=== PATIENT | male | born 1980 | race Caucasian/White ===

== ENCOUNTER 2017-04-26 11:20 | Emergency (ER) | payer MEDICARE, MEDICAID ==
[2017-04-26] MEDS ORDERED: Ondansetron ODT 4 MG TAB ONE (11:31)
--- NOTE | 2017-04-26 12:07 | RAD ---
RADIOGRAPH PELVIS ONE VIEW: Date: 04-26-17 History: 37-year-old male with acute traumatic pelvic pain from fall. FINDINGS: There is no dislocation. The pelvic ring appears to be grossly intact with no evidence of grossly dis placed fracture. IMPRESSION: Negative. POS: [facility]
--- NOTE | 2017-04-26 12:22 | CT ---
CT LUMBAR SPINE NONCONTRAST: 04/26/2017 HISTORY: A 37-year-old male with acute, traumatic low back pain after a fall. COMPARISON: None. FINDINGS: There are five lumbar type vertebrae. Minimal chronic anterior wedging of T12. Otherwise, the verte bral body heights are maintained. Slight degenerative retrolisthesis of L5 on S1. Otherwise, alignm ent is normal. No spondylolysis. No acute fracture. At L5-S1, there is a left paracentral extradural mass indenting the left side of the thecal sac and p osteriorly displacing a swollen left S1 nerve root. This soft tissue density mass fills the left lat eral recess. It also enters the left neural foramen and causes moderate to severe left neural forami nal stenosis, superiorly displacing the exiting left L5 nerve root. There is mild to moderate disk s pace narrowing at L5-S1. There are mild disk bulges at L3-L4, L4-L5, and L5-S1. No hematoma in the perivertebral spaces. There is mild dilation of the left ureter. Minimal dilation of the left renal collecting system. The right renal fossa is empty, except for surgical clips and bowel loops. IMPRESSION: 1. Left paracentral and left lateral soft tissue density mass impinging on the left S1 nerve root an d probably also the left L5 nerve root. Given the history of trauma, this is evidence for an extrude d disk herniation. 2. No acute compression fracture. 3. Status post right nephrectomy. POS: [facility]
== END 2017-04-26 13:00 | disposition home or self-care (01) ==
LOC: ERS 11:20
DX: M54.5 Low back pain (principal); F17.210 Nicotine dependence, cigarettes, uncomplicated
CPT/HCPCS: 72131; 72170; 96372; J2270; Q0162

== ENCOUNTER 2017-05-24 05:50 | Day surgery (SDC) | payer MEDICARE, MEDICAID ==
[2017-05-23 11:26] VITALS: BMI 23.1
[2017-05-24 06:30] LABS: Hemoglobin 14.5 g/dL (14.0-18.0); Mean Corpuscular HGB CONC 35.2 g/dL (32.0-36.0); Mean Corpuscular Hemoglobin 32.6 pg (27.0-31.0); Mean Corpuscular Volume 92.6 fl (80.0-94.0); Mean Platelet Volume 7.6 fL (7.4-10.4); Platelet Count 223 thou/uL (130-400); RBC Distribution Width 11.3 % (11.5-14.5); Red Blood Cell (RBC) Count 4.44 mill/uL (4.70-6.10); White Blood Cell (WBC) Count 7.4 thou/uL (4.8-10.8)
[2017-05-24] MEDS ORDERED: Fentanyl 250 MCG/5 ML VIAL ONE ×2 (06:39→09:26)
[2017-05-24 06:40] LABS: INR-International Normal Ratio 1.1; Prothrombin Time 14.2 SEC (12.0-14.7)
[2017-05-24 06:41] LABS: PTT 31.6 SEC (22.9-36.1)
[2017-05-24] MEDS ORDERED: Bupivacaine HCl 0.5%/Epinephrine 1:200,000/PF 30 ml Vial ONE (06:44)
[2017-05-24] MEDS ORDERED: Thrombin 5000 UNITS/5 ML VIAL ONE (06:44)
[2017-05-24] MEDS ORDERED: Sodium Chloride 0.9% 10 ML ONE ×2 (06:44)
[2017-05-24] MEDS ORDERED: CEFAZOLIN/Water 2 GM/20 ML SYRINGE ONE ×2 (07:02→11:10)
[2017-05-24] MEDS ORDERED: Midazolam HCl 2 mg/2 ml Vial ONE (07:10)
--- NOTE | 2017-05-24 07:17 | HP ---
CHIEF COMPLAINT: Back and left leg pain. HISTORY OF PRESENT ILLNESS: Ronaldo Posada is a 37-year-old gentleman who presents with a 4-5 months of posterior left thigh pain. The pain progressed to include numbness on the back of his thigh. 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 The pain came on after lifting some metal ba rs and then has progressively gotten worse. Oral analgesics have helped with the pain. Leaning to t he left or flexing the left hip seems to exacerbate his discomfort. Due to the severity of the imagi ng findings we offered him surgical intervention. He is here for that surgery today. PAST MEDICAL HISTORY: Back pain. PAST SURGICAL HISTORY: [id number] amputation in 1998 on the left side, left nephrectomy. HOSPITALIZATIONS: Hospitalization for surgery in 1998. FAMILY HISTORY: Both parents are alive as are his siblings and they are healthy. SOCIAL HISTORY: Mr. Posada was hurt on the job site, but is currently not working. He is a nd has one child. He has been a smoker for 24 years. REVIEW OF SYSTEMS: Multisystem review of symptoms is negative. ADMISSION MEDICATION: Nexium p.r.n., Aleve p.r.n. PHYSICAL EXAMINATION: The patient's physical height 6 feet 3 inches, weight 185 pounds. Cranial nerves intact. CEREBELLAR EXAM: Normal. MOTOR EXAMINATION: Mild weakness left hamstrings, BKA prevents testing of toe flexors and gastroc. SENSORY EXAMINATION: Posterior thigh numbness on the left side. IMAGING: MR imaging of the lumbar spine shows a very large intervertebral disk herniation at the lum bosacral interspace eccentric to the left obstructing S1 nerve root. ASSESSMENT: 1. Lumbosacral radiculopathy, left side. 2. Intervertebral disk herniation L5-S1, left side. PLAN: Hemilaminectomy, medial facetectomy, and microdiskectomy, left L5-S1, planned. INFORMED CONSENT: In the office. I discussed indications, risks, benefits, alternatives expected ou tcomes from surgery. The risks, we discussed included, but were not limited to bleeding, infection, CSF leak, nerve root damage, paralysis, incontinence, wheelchair dependence, cardiopulmonary complica tions of anesthesia, major blood vessel injury and . He understands those risks and is willing to proceed. We will take Mr. Posada to the operating room. We plan an outpatient surgery. He will want crutches after surgery because he is not using his prost hetic leg. We will provide him with pain medication and a muscle relaxant as well.
[2017-05-24] MEDS ORDERED: HYDROmorphone 0.5 MG/0.5 ML SYRINGE ONE (08:21)
[2017-05-24] MEDS ORDERED: diphenhydrAMINE 50 MG/ML VIAL IVP PRN (09:18)
[2017-05-24] MEDS ORDERED: Promethazine HCl 25 MG/ML VIAL IM PRN (09:18)
[2017-05-24] MEDS ORDERED: Promethazine 25 MG TAB PO PRN (09:18)
[2017-05-24] MEDS ORDERED: traMADol HCl 50 MG TAB PO PRN (09:18)
[2017-05-24] MEDS ORDERED: diphenhydrAMINE 25 MG CAP PO PRN (09:18)
[2017-05-24] MEDS ORDERED: tiZANidine HCl 4 MG TAB PO PRN (09:18)
[2017-05-24] MEDS ORDERED: Acetaminophen/Codeine 30-300mg Tablet PO PRN (09:18)
[2017-05-24] MEDS ORDERED: Acetaminophen 325 MG TAB PO PRN (09:18)
[2017-05-24] MEDS ORDERED: Promethazine HCl 12.5 MG SUPP PR PRN (09:18)
[2017-05-24] MEDS ORDERED: Ondansetron HCl/PF 4 MG/2 ML Vial IVP PRN (09:18)
[2017-05-24] MEDS ORDERED: Cyclobenzaprine 10 MG TAB PO PRN (09:18)
--- NOTE | 2017-05-24 09:29 | OP ---
DATE OF PROCEDURE: 05/24/2017 SURGEON: Solo Cantu M.D. COLLARETTE SEPARATOR: None. PREOPERATIVE INDICATION: Treat pain, prevent neurological deterioration. PREOPERATIVE DIAGNOSES: Left intervertebral disk herniation L5-S1 with left S1 radiculopathy. POSTOPERATIVE DIAGNOSIS: Left intervertebral disk herniation L5-S1 with left S1 radiculopathy. OPERATIVE PROCEDURE: Left-sided partial hemilaminectomy, medial facetectomy, and microdiskectomy, op erating microscope. PREOPERATIVE MEDICATIONS: Ancef 2 grams IV. DRAIN NUMBER: Zero. DRAIN TYPE: None. OPERATIVE DICTATION: The patient was brought to the operating room. General endotracheal anesthesia was induced. The patient was positioned prone on the operating table with his chest and hips suppor barbara by gel-filled chest rolls. A lateral fluoro radiograph was used to plan our incision. The lumba r skin was sterilely prepped and draped. We opened with a 10 blade knife and controlled bleeding wit h bipolar cautery. We used monopolar cautery to dissect to the thoracodorsal fascia. We incised the fascia left of the midline and reflected the paraspinal muscles off the spinous process and lamina o f L5 on S1 on the left side. We placed a marker on the facet joint and took a lateral fluoro radiogr aph to confirm the level upon which we were operating. Then, using Steely and Kerrison rongeurs, we fashioned a partial hemilaminectomy and medial facetectomy. We identified the yellow ligament and br ought the operating microscope in the field. Under microscopic magnification using microsurgical techniques, we removed the yellow ligament in a p iecemeal fashion, we identified the S1 nerve root and a large intervertebral disk herniation in the v entral epidural space at the lumbosacral interspace. This was stretching the S1 nerve root significa ntly. We controlled epidural veins with gentle bipolar cautery, we then gently retracted the S1 nerv e root medially and incised with a posterior lateral portion of the disk herniation, disk material em anated under some pressure. We removed a very large fragment of herniated disk and after that remova l the S1 nerve root was quite free. It was loose. It was no longer stretched. We performed foramin otomies over the L5 and S1 nerve roots to ensure they were free at their exit points. We irrigated c opiously with bacitracin irrigation. We felt for more disk material medially and found none. We wade ched through the tear in the annulus into the intervertebral space and there was no loose fragment of disk waiting to herniate. We irrigated once again with bacitracin irrigation and infused local anes thetic in the paraspinal muscles. We closed the wound in anatomic layers. We applied a sterile dres sing. This was a clean case and no contamination.
[2017-05-24] MEDS ORDERED: HYDROcodone/Acetaminophen 5/325 mg Tablet ONE (11:35)
[2017-05-24] MEDS ORDERED: Glycopyrrolate 0.2 MG/ML 5 ML SYRINGE ONE (13:57)
[2017-05-24] MEDS ORDERED: PROPOFOL 200 MG/20 ML VIAL ONE (13:57)
[2017-05-24] MEDS ORDERED: Lidocaine 1% PF 5 ML VIAL ONE (13:57)
[2017-05-24] MEDS ORDERED: ePHEDrine/0.9% NaCl/PF SYRINGE 50 mg/10 ml ONE (13:57)
[2017-05-24] MEDS ORDERED: Dexamethasone 20 MG/5 ML VIAL ONE (13:57)
[2017-05-24] MEDS ORDERED: Ondansetron HCl/PF 4 MG/2 ML Vial ONE (13:57)
[2017-05-24] MEDS ORDERED: Ketorolac Tromethamine 30 MG/ML VIAL ONE (13:57)
[2017-05-24] MEDS ORDERED: CEFAZOLIN/Water 2 GM/20 ML SYRINGE SLOW IVP SCH (15:00)
== END 2017-05-24 12:25 | disposition home or self-care (01) ==
LOC: SDC 05:50
PROVIDERS: ATTEND Neurological Surgery
PROC: 01NB0ZZ Release Lumbar Nerve, Open Approach (ICD-10-PCS; principal; 2017-05-24)
PROC: 0SB20ZZ Excision of Lumbar Vertebral Disc, Open Approach (ICD-10-PCS; 2017-05-24)
DX: M51.17 Intervertebral disc disorders with radiculopathy, lumbosacral region (principal); Z89.512 Acquired absence of left leg below knee; Z90.5 Acquired absence of kidney; Z79.899 Other long term (current) drug therapy
CPT/HCPCS: 76001; 85027; 85610; 85730; 96374; A4216; J0131; J0670; J1100; J1170; J1885; J2001; J2250; J2405; J2704; J3010; J3490